=== PATIENT | female | born 2000 | race Caucasian/White ===

== ENCOUNTER 2022-08-06 13:58 | Day surgery (SDC) | payer MEDICAID ==
[2022-08-06 14:59] VITALS: BMI 24.3
[2022-08-06] MEDS ORDERED: hydrALAZINE 20 MG/ML VIAL SLOW IVP PRN (15:00)
== END 2022-08-06 16:35 | disposition home or self-care (01) ==
LOC: CSHLD/OP 13:58
PROVIDERS: ATTEND Obstetrics & Gynecology
DX: O47.1 False labor at or after 37 completed weeks of gestation (principal); Z3A.39 39 weeks gestation of pregnancy; Z87.442 Personal history of urinary calculi
CPT/HCPCS: 99283

== ENCOUNTER 2022-08-09 11:18 | Inpatient (IN) | payer MEDICAID ==
[2022-08-09] MEDS ORDERED: hydrALAZINE 20 MG/ML VIAL SLOW IVP PRN (12:01)
[2022-08-09] MEDS ORDERED: Butorphanol Tartrate 1 MG/ML VIAL SLOW IVP PRN (13:43)
[2022-08-09] MEDS ORDERED: Fentanyl 100 MCG/2 ML VIAL SLOW IVP PRN (13:43)
[2022-08-09] MEDS ORDERED: Acetaminophen 500 MG TAB PO PRN (13:43)
[2022-08-09] MEDS ORDERED: Ondansetron PF 4 MG/2 ML Vial IVP PRN ×2 (13:43→22:16)
[2022-08-09] MEDS ORDERED: Docusate 100 MG CAP PO PRN (13:43)
[2022-08-09] MEDS ORDERED: Promethazine HCl 25 MG/ML VIAL IM PRN ×2 (13:43→22:16)
[2022-08-09] MEDS ORDERED: Lactated Ringer's 1,000 ML IV SCH (13:45)
[2022-08-09] MEDS ORDERED: Ibuprofen 800 MG TAB PO PRN (13:47)
[2022-08-09] MEDS ORDERED: Lidocaine 1% (PF) 30 ML VIAL SC PRN (13:47)
[2022-08-09] MEDS ORDERED: Methylergonovine 0.2 MG/ML VIAL IM PRN (13:47)
[2022-08-09] MEDS ORDERED: Misoprostol 200 MCG TAB PR PRN (13:47)
[2022-08-09] MEDS ORDERED: NS w/ Oxytocin 30 units 500 ML IV SCH ×2 (14:00)
[2022-08-09] MEDS ORDERED: Penicillin G Potassium 5 MILL.UNITS in Sodium Chloride 0.9% 100 ML IVPB SCH (14:00)
[2022-08-09] MEDS ORDERED: Penicillin G 2.5 MILL.units 2.5 MILL.UNITS in Premix Bag 1 BAG IVPB SCH (14:00)
[2022-08-09] MEDS ORDERED: Misoprostol 100 MCG TAB VAG SCH (14:00)
[2022-08-09 14:04] LABS: Fetal Membranes Rupture No Membranes Rupture (No Rupture)
[2022-08-09 14:28] LABS: #Eosinphils 0.1 10x3/uL (0.0-0.5); #Monocytes 0.6 10x3/uL (0.0-1.1); #Neutrophils 8.9 10x3/uL (1.5-8.4); %Basophils 0.3 % (0.0-2.0); %Eosinophils 0.5 % (0.0-6.0); %Lymphocytes 18.1 % (18.0-47.0); %Monocytes 4.9 % (0.0-10.0); %Neutrophils 75.7 % (40.0-75.0); Hemoglobin 11.2 g/dL (12.0-15.5); Mean Corpuscular HGB CONC 33.8 g/dL (32.0-36.0); Mean Corpuscular Hemoglobin 28.4 pg (27.0-33.0); Mean Corpuscular Volume 83.8 fl (81.6-98.3); Mean Platelet Volume 10.6 fl (7.4-10.4); Platelet Count 297 10x3/uL (150-450); RBC Distribution Width 13.3 % (11.5-14.5); Red Blood Cell (RBC) Count 3.95 10x6/uL (3.90-5.03); White Blood Cell (WBC) Count 11.8 10x3/uL (3.5-10.5)
[2022-08-09 14:50] LABS: ALT (SGPT) 22 U/L (8-55); AST (SGOT) 17 U/L (5-34); Albumin 3.1 g/dL (3.5-5.0); Alkaline Phosphatase 208 U/L (40-100); Anion Gap 15 mmol/L (10-20); BUN (Urea Nitrogen) 10 mg/dL (7.0-18.7); Bilirubin, Total 0.4 mg/dL (0.2-1.2); Calc. Creatinine Clearance 0 mL/min (70-130); Calcium 9.4 mg/dL (7.8-10.44); Carbon Dioxide 18 mmol/L (22-29); Chloride 107 mmol/L (98-107); Estimated GFR 128; Globulin 3.4 g/dL (2.4-3.5); Glucose 66 mg/dL (70-105); Potassium 4.1 mmol/L (3.5-5.1); Protein, Total 6.5 g/dL (6.0-8.3); Sodium 136 mmol/L (136-145)
[2022-08-09 15:04] LABS: SARS-CoV-2 NAA Rapid Test Not Detected (NotDetected)
[2022-08-09 15:06] LABS: Bilirubin Neg (Negative); Blood, Urine 50 (Negative); Clarity Cloudy (Clear); Glucose, Urine (Dipstick) Normal (Negative); Ketone, Urine 50 mg/dL (Negative); Leukocyte 500 (Negative); Nitrite Positive (Negative); Protein, Urine (Dipstick) 30 mg/dl (Neg-Trace); Urobilinogen Normal mg/dL (Less than 2)
[2022-08-09 15:11] LABS: Amphetamine Not Detected (NotDetected); Barbiturates Screen Not Detected (NotDetected); Benzodiazepine Screen Not Detected (NotDetected); Cocaine Metabolite Screen Not Detected (NotDetected); Methadone Not Detected (NotDetected); Methamphetamine Not Detected (NotDetected); Opiate Screen Not Detected (NotDetected); Oxycodone Screen Not Detected (NotDetected); Phencyclidine (PCP) Not Detected (NotDetected); THC/Cannabinoid Screen Not Detected (NotDetected); Tricyclic Screen Not Detected (NotDetected)
[2022-08-09 15:12] LABS: Syphilis Antibody Nonreactive (Nonreactive); Syphilis Antibody Index 0.07 S/CO (<1.00 Non-Reactive)
[2022-08-09 15:28] LABS: RBC/HPF 0-3 HPF (0-3); WBC/HPF 21-50 HPF (0-3)
[2022-08-09 15:29] LABS: Bacteria/HPF 4+ HPF (None Seen); Squamous Epithelial 0-3 HPF (0-3)
[2022-08-09 16:28] LABS: HIV (1/2) Antibody/Antigen Non-Reactive (NonReactive); HIV 1/2 INDEX 0.07 S/CO (<1.00); Hep B Surf Ag Non-Reactive S/CO (NonReactive)
[2022-08-09] MEDS ORDERED: Butorphanol Tartrate 1 MG/ML VIAL ONE (16:55)
[2022-08-09 16:59] VITALS: BMI 24.3
[2022-08-09] MEDS ORDERED: Acetaminophen 500 MG TAB PO SCH (18:45)
[2022-08-09] MEDS: Cephalexin 500 MG CAP PO SCH (19:12)
[2022-08-09] MEDS ORDERED: Penicillin G Potassium 5 MILL.UNITS VIAL ONE (19:15)
[2022-08-09] MEDS ORDERED: Fentanyl 2 mcg/Bup 0.1% Cadd 100 ML ONE (20:19)
[2022-08-09] MEDS ORDERED: Moisturizing Cream (Eucerin) 113 GM JAR TOP PRN (22:16)
[2022-08-09] MEDS ORDERED: Naloxone HCl 0.4 mg/ml Vial IVP PRN ×2 (22:16)
[2022-08-09] MEDS ORDERED: ePHEDrine Sulfate 50 MG/10 ML VIAL SLOW IVP PRN (22:16)
[2022-08-09] MEDS ORDERED: Lactated Ringer's 500 ML IV PRN (22:16)
[2022-08-09] MEDS ORDERED: diphenhydrAMINE 50 MG/ML VIAL IVP PRN (22:16)
[2022-08-09] MEDS ORDERED: Fentanyl 2 mcg/Bupivacaine 0.1% Cassette 100 ML EPIDURAL SCH (22:30)
[2022-08-09] MEDS ORDERED: Communication Order-Pharmacy FS SCH (22:30)
[2022-08-10] MEDS ORDERED: Calcium Carbonate 500 MG ChewTAB PO PRN (05:54)
[2022-08-10] MEDS: Acetaminophen 325 MG TAB PO PRN (06:15)
[2022-08-10] MEDS ORDERED: Ondansetron PF 4 MG/2 ML Vial IVP PRN (08:25)
[2022-08-10] MEDS ORDERED: hydrALAZINE 20 MG/ML VIAL SLOW IVP PRN (08:25)
[2022-08-10] MEDS ORDERED: Boostrix 0.5 ML (Tdap) VIAL (>/=7 yrs of age) IM ONE (08:25)
[2022-08-10] MEDS ORDERED: Promethazine HCl 25 MG/ML VIAL IM PRN (08:25)
[2022-08-10] MEDS ORDERED: Bisacodyl 10 MG SUPP PR PRN (08:25)
[2022-08-10] MEDS ORDERED: diphenhydrAMINE 25 MG CAP PO PRN (08:25)
[2022-08-10] MEDS ORDERED: NS w/ Oxytocin 30 units 500 ML IV SCH (08:25)
[2022-08-10] MEDS ORDERED: Misoprostol 200 MCG TAB VAG PRN (08:25)
[2022-08-10] MEDS ORDERED: Methylergonovine 0.2 MG/ML VIAL IM PRN (08:25)
[2022-08-10] MEDS ORDERED: Milk Of Magnesia 30 ML UDCUP PO PRN (08:25)
[2022-08-10] MEDS: Cephalexin 500 MG CAP PO SCH ×3 (08:29→20:30)
[2022-08-10] MEDS ORDERED: Ferrous Sulfate 325 MG TAB PO SCH (09:00)
[2022-08-10] MEDS: Docusate 100 MG CAP PO SCH ×2 (09:20→20:30)
[2022-08-10] MEDS: Ibuprofen 800 MG TAB PO SCH ×2 (09:21→16:32)
[2022-08-10] MEDS: Prenatal Vitamin 1 TAB PO SCH (09:22)
[2022-08-10] MEDS: Acetaminophen 500 MG TAB PO PRN (11:45)
[2022-08-10 14:45] LABS: GC by PCR Not Detected (NotDetected)
[2022-08-10] MEDS: Ferrous Sulfate 325 MG TAB PO SCH (15:03)
[2022-08-11] MEDS: Ibuprofen 800 MG TAB PO SCH ×3 (00:06→16:37)
[2022-08-11] MEDS: Acetaminophen 500 MG TAB PO PRN (04:40)
[2022-08-11] MEDS: Cephalexin 500 MG CAP PO SCH ×3 (04:40→20:51)
[2022-08-11] MEDS: Ferrous Sulfate 325 MG TAB PO SCH ×2 (07:33→16:17)
[2022-08-11] MEDS: Docusate 100 MG CAP PO SCH (09:06)
[2022-08-11] MEDS: Prenatal Vitamin 1 TAB PO SCH (09:06)
[2022-08-11] MEDS: Acetaminophen 325 MG TAB PO PRN (16:38)
[2022-08-11] MEDS ORDERED: Cyclobenzaprine 10 MG TAB PO PRN (17:16)
[2022-08-12] MEDS: Ibuprofen 800 MG TAB PO SCH ×2 (01:30→08:40)
[2022-08-12] MEDS: Docusate 100 MG CAP PO SCH ×2 (01:30→08:40)
[2022-08-12] MEDS: Cephalexin 500 MG CAP PO SCH ×2 (04:46→11:40)
[2022-08-12] MEDS: Ferrous Sulfate 325 MG TAB PO SCH (08:26)
[2022-08-12 08:31] VITALS: BP 125/77; TEMP 97.6
[2022-08-12] MEDS: Prenatal Vitamin 1 TAB PO SCH (08:40)
== END 2022-08-12 14:00 | disposition home or self-care (01) | DRG 806 ==
LOC: CSHLD/OP 11:18 → CSHLD 14:37 → CSHPP 08-10 08:10
PROVIDERS: ADMIT Obstetrics & Gynecology; ATTEND Obstetrics & Gynecology
PROC: 10907ZC Drainage of Amniotic Fluid, Therapeutic from Products of Conception, Via Natural or Artificial Opening (ICD-10-PCS; 2022-08-09)
PROC: 10E0XZZ Delivery of Products of Conception, External Approach (ICD-10-PCS; principal; 2022-08-10)
DX: O42.02 Full-term premature rupture of membranes, onset of labor within 24 hours of rupture (principal); N39.0 Urinary tract infection, site not specified; Z37.0 Single live birth; O23.43 Unspecified infection of urinary tract in pregnancy, third trimester; Z20.822 Contact with and (suspected) exposure to COVID-19; Z3A.39 39 weeks gestation of pregnancy; O99.824 Streptococcus B carrier state complicating childbirth; J45.909 Unspecified asthma, uncomplicated; O99.52 Diseases of the respiratory system complicating childbirth; O76 Abnormality in fetal heart rate and rhythm complicating labor and delivery
CPT/HCPCS: 51702; 76856; 80053; 80306; 81001; 82570; 84112; 84156; 85025; 86762; 86780; 86850; 86900; 86901; 87077; 87086; 87186; 87340; 87389; 87480; 87510; 87591; 87660; 99285; J0595; J2540; J2590; J3490